=== PATIENT | female | born 1965 | race Caucasian/White ===

== ENCOUNTER → 2023-12-20 10:45 | Outpatient (REF) | payer SELFPAY | LOC: HWRAD 10:45 | PROVIDERS: ATTENDING PHYSICIAN Family Medicine | DX: E78.2 Mixed hyperlipidemia (principal) | CPT/HCPCS: 75571 ==

== ENCOUNTER → 2024-01-03 10:49 | Outpatient (REF) | payer BC, SELFPAY | LOC: HWRAD 10:49 | PROVIDERS: ATTENDING PHYSICIAN Family Medicine | DX: E07.89 Other specified disorders of thyroid (principal) | CPT/HCPCS: 76536 ==

== ENCOUNTER → 2024-01-22 06:46 | Outpatient (REF) | payer BC, SELFPAY | LOC: MRI 06:46 | PROVIDERS: ATTENDING PHYSICIAN Family Medicine | DX: M54.2 Cervicalgia (principal); R20.0 Anesthesia of skin | CPT/HCPCS: 72141 ==

== ENCOUNTER → 2025-03-12 12:50 | Outpatient (REF) | payer OTHER, SELFPAY | LOC: HWRAD 12:50 | PROVIDERS: ATTENDING PHYSICIAN Family Medicine | DX: E04.1 Nontoxic single thyroid nodule (principal) | CPT/HCPCS: 76536 ==

== ENCOUNTER 2025-03-12 17:11 | Emergency (ER) | payer OTHER, SELFPAY ==
[2025-03-12 17:17] VITALS: BP 166/102
[2025-03-12 17:42] LABS: Hematocrit 41.4 % (37.0-47.0); Hemoglobin 13.8 g/dL (12.0-16.0); Mean Corp Hgb Conc. 33.3 g/dL (33.0-37.0); Mean Corpuscular Volume 88.1 fL (81.0-99.0); Nucleated Red Blood Cells % 0 %; Platelet Count 161 10^3/uL (130-400); Red Cell Dist. Width 13.1 % (11.5-14.5)
[2025-03-12 18:01] LABS: HCG, Serum Qualitative Screen Negative
[2025-03-12 18:08] LABS: Troponin I < 0.012 ng/ml
[2025-03-12 18:09] LABS: ALT (SGPT) 56 U/L (0-35); AST (SGOT) 43 U/L (14-36); Albumin 4.5 g/dl (3.5-5.0); Alkaline Phosphatase 52 U/L (38-126); Blood Urea Nitrogen 30 mg/dl (7-17); Calcium 9.4 mg/dl (8.4-10.2); Carbon Dioxide 26 mmol/L (22-30); Chloride 105 mmol/L (98-107); Glucose 111 mg/dl (70-99); Potassium 4.0 mmol/L (3.5-5.1); Sodium 139 mmol/L (135-145); Total Protein 6.9 g/dl (6.3-8.2); eGFR > 60.00
[2025-03-12 18:19] VITALS: BMI 24.1
[2025-03-12 18:24] VITALS: BP 137/78
[2025-03-12] MEDS: MAALOX 40 PO (18:40)
--- NOTE | 2025-03-12 18:40 | ED.GENMED ---
History of Present Illness
General
Chief Complaint: Chest Pain
Source: patient and spouse
Exam Limitations: none
Time Seen by Provider: 03/12/25 17:59
Nursing documentation reviewed up to this point in time: agreed with
History of Present Illness
History of Present Illness:
59-year-old female hyperlipidemia, reflux, started on a statin few months ago had myalgias change to different statin, myalgias are less severe, had blood work elevated showed elevated CPK referred to the ER for evaluation has had some pressure in
the middle of her chest which she thought was indigestion she did stop her PPI reportedly, symptoms are worse when she lays flat, she states she always feels tired, she although she is active goes to the gym frequently, her mother who is alive has
had strokes her father whose past had cardiac stents
Past History
Past History
ED Past Medical History: None
ED Past Surgical History: None
Social History
Tobacco: Non-smoker
Phy Exam
Physical Exam
Physical Exam:
Physical Exam
General: no apparent distress, not acutely ill
Neck: supple. no meningeal signs. normal psoterior pharynx
Heart: Regular
Lungs: no acute respiratory distress. clear bilaterally
Abdomen: normal bowel sounds. not tender. no CVAT
Neuro: alert and oriented. no focal neurological deficits
Skin: no rash
Psychiatric: well kept. interactive and cooperative
Extremities: no edema. no calf tenderness. negative homans. good distal pulses
Scores
Heart Score for Chest Pain Patients
STEMI patient?: No
History: Slightly or Non-Suspicious
ECG: Nonspecific Repolarization
Age: >45 - <65 years
Risk Factors: 1 or 2 Risk Factors
Troponin: </= Normal Limit
Heart Score for Chest Pain Patients: 3
Heart Score Risk: 2.5% MACE over next 6 weeks
Course
Orders/Labs/Results
Orders:
Orders
03/12/25 17:12
Electrocardiogram (*1) Urgent
Reason for Study: Chest Pain
EKG- Treatment ONCE
03/12/25 17:13
Test Result ONCE
03/12/25 17:21
Thyroid profile [TSH Reflex To Free T4] Urgent
03/12/25 17:27
Complete Blood Count/With Diff Urgent
Comprehensive Metabolic Panel Urgent
Creatine Phosphokinase Urgent
HCG, Serum Qualitative Screen Urgent
Comment: Notify provider if positive test present
Troponin I Urgent
03/12/25 18:33
Mag Hydrox/Al Hydrox/Simeth [Maalox] 30 ml Phenobarb/Hyoscy/Atropine/Scop [] 10 ml PO NOW
03/12/25 18:37
Mag Hydrox/Al Hydrox/Simeth [Maalox] 30 ml .ROUTE .STK-MED ONE
Phenobarb/Hyoscy/Atropine/Scop [] 10 ml .ROUTE .STK-MED ONE
Abnormal Lab Results
03/12/25
17:27
BUN 30 H mg/dl
(7-17)
Glucose 111 H mg/dl
(70-99)
AST 43 H U/L
(14-36)
ALT 56 H U/L
(0-35)
Creatine Kinase 396 H U/L
(30-135)
03/12/25 17:27
03/12/25 17:27
Vital Signs
Initial and Last Documented VS:
Initial Vital Signs
Temp Pulse Resp BP Pulse Ox
97.5 F 73 18 166/102 98
03/12/25 17:17 03/12/25 17:17 03/12/25 17:17 03/12/25 17:17 03/12/25 17:17
Last Documented Vital Signs
Temp Pulse Resp BP Pulse Ox
98 F 72 18 137/78 99
03/12/25 18:24 03/12/25 18:24 03/12/25 18:24 03/12/25 18:24 03/12/25 18:47
MDM/Problems Addressed
Differential Diagnosis Includes:
GERD noncardiac chest pain ACS late presentation [place]
MDM/Problems Addressed:
Chest pain muscle aches elevated CPK
Chronic conditions affecting care:
GERD lipids
Acute Exacerbation and/or Progression of Chronic Illness:
GERD lipids
*Pulse Oximetry
SaO2: 99
Oxygen Mode of Delivery: Room air
Patient hypoxic: no
*EKG
Interpreted by ED Provider?: Yes
Interpretation: normal
Comparison EKG: no comparison EKG present
Heart Rate: 78
Rate: normal
Rhythm: sinus
QRS Pattern: normal QRS
Ischemia: no ischemia
*Manager Architectural Interpretation
Rate: normal
Interpretation: normal
Heart Rate: 78
Rhythm: sinus
*Critical Care Note
Total Time (30-74mins, 75-104mins- exclusive of procedures): Not Applicable
Update Note
Update Note:
6:40 PM update labs noted CPK noted troponin noted
EKG noted
Had symptoms for a week, will give GI cocktail restarted on a PPI
ED Attending Note
-
Portions of this chart may have been created with voice recognition software.� Occasional wrong word or��sound alike� substitutions may have occurred due to the inherent limitations of voice recognition software.
Discharge Plan
Departure
Referrals:
UNKNOWN - PT DOES,NOT KNOW [Family Provider]
Interventions
Interventions:
*Risk Screen - Suicide Last Done: 03/12/25 17:17
*General Assessment Last Done: 03/12/25 18:20
*Neglect/Abuse Screening Last Done: 03/12/25 17:17
*ED- Fall Risk Assessment Last Done: 03/12/25 18:20
*ED COVID-19 Vaccine History Last Done: 03/12/25 18:20
ED- Cardiac Assessment Last Done: 03/12/25 18:27
Discharge Date and Time
Print Language: RUSSIAN
[2025-03-12] MEDS: PROTONIX 40 MG PO (19:17)
[2025-03-12 19:25] VITALS: BP 121/72
== END 2025-03-12 19:31 | disposition home or self-care (01) ==
LOC: EMR 17:11
PROVIDERS: Emergency Medicine; Student in an Organized Health Care Education/Training Program; EMERGENCY PHYSICIAN Emergency Medicine
DX: R07.9 Chest pain, unspecified (principal); E78.5 Hyperlipidemia, unspecified; K21.9 Gastro-esophageal reflux disease without esophagitis
CPT/HCPCS: 99284; 80053; 82550; 84443; 84484; 84703; 85025; 93005

== ENCOUNTER → 2025-03-18 14:50 | Outpatient (REF) | payer OTHER, SELFPAY | LOC: HWWDC 14:50 | PROVIDERS: ATTENDING PHYSICIAN Nurse Practitioner Adult Health; FAMILY PHYSICIAN Family Medicine | DX: Z12.31 Encounter for screening mammogram for malignant neoplasm of breast (principal) | CPT/HCPCS: 77063; 77067 ==